=== PATIENT | female | born 1985 | race Caucasian/White ===

== ENCOUNTER 2019-08-26 08:45 | Outpatient (CLI) | payer SELFPAY ==
[2019-08-27 16:01] LABS: COVID-19 RT-PCR Result Not Detected ((See Note))
== END 2019-08-26 09:05 ==
PROVIDERS: Visit Provider Family Medicine
DX: Z11.59 Encounter for screening for other viral diseases (principal)
CPT/HCPCS: U0003

== ENCOUNTER 2019-11-15 07:50 | Emergency (ER) | payer BC, SELFPAY ==
[2019-11-15] VITALS (27 sets, daily range): BP systolic 122–153; BP diastolic 60–79; PULSE 115–142; RESP 14–32; TEMP 36.8–37.2; O2SAT 94–100
[2019-11-15] MEDS: Normal Saline 1,000 ML 1000 ML IV ×2 (08:03→09:19)
[2019-11-15 08:04] LABS: Bilirubin Negative (Negative); Blood Negative (Negative); Clarity Clear (Clear); Glucose Negative (Negative); Ketones 80 mg/dL (Negative); Leukocyte Esterase Negative (Negative); Nitrite Negative (Negative); Specific Gravity 1.025 (1.005-1.025); Urobilinogen 0.2 EU/dL (Up TO 0.2); pH 5.5 (5-8)
[2019-11-15] MEDS: Ondansetron 4 MG/2 ML VIAL IVP (08:13)
[2019-11-15] MEDS: Normal Saline Flush 10 ML SYR IVP ×2 (08:14→09:11)
--- NOTE | 2019-11-15 08:17 | W.ED.GENAD ---
Discharge Plan Disposition Patient Disposition: HOME Condition: Stable Discharge Details Chief Complaint: Nausea/Vomit/Diar Clinical Impression: Gastroenteritis, Hyperthyroidism Primary Care Provider: Starr Javier ED Provider: Sheba Spence Home Meds and New Rx's Prescriptions: New methimazole 10 mg tablet 20 mg PO DAILY 30 Days Qty: 60 RF: 0 atenolol 25 mg tablet 25 mg PO DAILY 30 Days Qty: 30 RF: 0 ondansetron 4 mg tablet,disintegrating 4 mg PO TID PRN (Reason: Nausea) 5 Days Qty: 20 RF: 0 Discharge Instructions Instructions: Hyperthyroidism (ED), Gastroenteritis (ED) Additional Instructions: Follow-up with [facility] endocrinology clinic on Saturday afternoon. They will call you to make an appointment. If you do not hear from them by tomorrow afternoon please call to make an appointment. I spoke with Dr. King. At this time your thyroid test appeared that you are in hyperthyroid. You also do have some gastroenteritis and thickening of your bowel wall which is indication of inflammation. Take nausea medications as directed. Do start taking the methimazole and atenolol daily as prescribed. If increased dizziness or heart rate less than 60 or blood pressure less than 90 stop taking the atenolol. Keep your primary care appointment as previously scheduled you are also placed on a list to get a sooner appointment. As always please return to the ER with any worsening or concerns. Follow up with primary care provider in 3-5 days. Return to ED sooner if any worsening or concerns. Increase oral fluids. Referrals: Starr Javier, [employer] [Primary Care Provider] - Discharge Data Discharge Date/Time-TO BE ENTERED AT DEPARTURE: 11/15/19 11:37 Medical Decision Making 34-year-old female presents to the ER with chronic history of nausea vomiting diarrhea. Over the last couple days nausea has been getting worse she presents via EMS with tachycardia, shakiness associated symptoms include night sweats or hot flashes patient describes it, stuffy nose, loose diarrhea at least 2-3 episodes daily, nausea. She denies any abdominal pain. She has been taking gastro-pharm which is a lactobacillus medication 3 times a day which she reports has been helping. She denies any drugs or alcohol. She reports decreased appetite due to the nausea. Relieving factors include laying down. At this time abdominal work-up ordered including CBC, CMP, lipase, urinalysis normal saline 1 L, Zofran given. At this time differential diagnosis includes but not limited to gastroenteritis, cholecystitis, gastric emptying syndrome,Thyroid storm,Food poisoning 0936: Patient is mildly hypomagnesemia 1.7, potassium is 3.4, carbon dioxide is 20.3, anion gap is 14.7 BUN and creatinine is 13 and 0.60, GFR is greater than 60. TSH is less than 0.01, Reflex free T4 added on. This could explain tachycardia. Will give oral magnesium and potassium here in department. PROCEDURE INFORMATION: Exam: CT Abdomen And Pelvis With Contrast Exam date and time: 11/15/2019 9:01 AM Age: 34 years old Clinical indication: Other: Chronic nausea, vomiting, diarrhea; Patient HX: Two years with nausea, worse in the last 2 months FINDINGS: Liver: Normal. No mass. Gallbladder and bile ducts: Normal. No calcified stones. No ductal dilation. Pancreas: Normal. No ductal dilation. Spleen: Normal. No splenomegaly. Adrenals: Normal. No mass. Kidneys and ureters: Normal. No hydronephrosis. Stomach and bowel: Diffuse proximal small bowel wall thickening without significant distention. No adjacent inflammatory changes. Non-specific enteritis, additional workup necessary. Distal small bowel normal in appearance. Terminal ileum unremarkable. Appendix: No evidence of appendicitis. Intraperitoneal space: Unremarkable. No free air. No significant fluid collection. Vasculature: Unremarkable. No abdominal aortic aneurysm. Lymph nodes: Unremarkable. No enlarged lymph nodes. Bladder: Unremarkable as visualized. Reproductive: Unremarkable as visualized. Bones/joints: Unremarkable. No acute fracture. Soft tissues: Unremarkable. IMPRESSION: Diffuse proximal small bowel wall thickening without significant distention. No adjacent inflammatory changes. Non-specific enteritis, additional workup necessary. Thank you for allowing us to participate in the care of your patient. Dictated and Authenticated by: Misa Gao MD 1056: Endocrinology paged for consult. At this time is concern for hyperthyroidism, no evidence for thyroid storm patient has remained afebrile, she states that she feels somewhat better after the fluids and nausea medications. After 2 L normal saline she is remained tachycardic at a rate of 130. 1049: Spoke with Marquis with endocrinology. Upon further questioning patient does report some sore throat upon awakening every day, Denies trouble swallowing. Upon further exam, patient does appear to have a enlarged thyroid, without a goiter. Director Smb Sales Dr. Farhana Flores recommends methimazole 20 mg/day and atenolol 25 mg twice daily to control heart rate they will reach out to her and make an appointment for Saturday afternoon she did recommend that I add on a TSI and a free T3 which was added to her labs. Will fax over her lab to [facility]. Patient stool specimens ordered for stool PCR, ova and parasite patient to collect at home to bring to lab at later date. Patient encouraged to keep upcoming PCP appointment,. HPI General Mode of arrival: EMS. Date/Time Provider Initiated Documentation: 11/15/19 08:02. Limitations to Documentation: no limitations. Information obtained by: patient and EMS. HPI Narrative: 34-year-old female presents to the ER with chronic history of nausea vomiting diarrhea. Over the last couple days nausea has been getting worse she presents via EMS with tachycardia, shakiness associated symptoms include night sweats or hot flashes patient describes it, stuffy nose, loose diarrhea at least 2-3 episodes daily, nausea. She denies any abdominal pain. She has been taking gastro-pharm which is a lactobacillus medication 3 times a day which she reports has been helping. She denies any drugs or alcohol. She reports decreased appetite due to the nausea. Relieving factors include laying down. Related Data Home Medications Medication Instructions Recorded Confirmed atenolol 25 mg PO DAILY 30 Days #30 tab 11/15/19 methimazole 20 mg PO DAILY 30 Days #60 tab 11/15/19 ondansetron 4 mg PO TID PRN 5 Days #20 tab 11/15/19 Previous Rx's Medication Instructions Recorded atenolol 25 mg PO DAILY 30 Days #30 tab 11/15/19 methimazole 20 mg PO DAILY 30 Days #60 tab 11/15/19 ondansetron 4 mg PO TID PRN 5 Days #20 tab 11/15/19 Allergies Allergy/AdvReac Type Severity Reaction Status Date / Time No Known Allergies Allergy Unverified 11/15/19 08:06 General Stated Complaint: Nausea/Vomit/Diar JILL: 3 Review of Systems Narrative: Constitutional: Negative for fever, alert and oriented, well groomed, thin body habitus, appears anxious. HEENT: Denies trauma, headaches, blurry vision, nasal discharge, sore throat, trouble swallowing. Chest: Denies chest pain, irregular rhythm, hypertension. Respiratory: Denies Shortness of breath, cough, hemoptysis. GI: Denies abdominal pain, , constipation. Of nausea, vomiting, diarrhea. Denies dark or bloody stools denies any mucus in stools. : Denies dysuria, hematuria, flank pain, rectal bleeding. Neuro: Denies dizziness, blurry vision, weakness, syncope, headache or facial numbness. Hematologic: Denies easy bruising, intolerance to heat or cold, hair loss. 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 Appears stated age. Thin body habitus. Appears anxious and shaky. Head: Normocephalic, no trauma. Eyes: Pupils PERRLA, Red reflex noted, EOM's intact. Eyelids symmetrical without lesions, discharge, or swelling. ENT: Bilateral TM's WNL, External ear normal to inspection, no mastoid TTP, swelling, or erythema, Nasal turbinates WNL, no nasal discharge. Normal dentition, Posterior pharynx WNL, no exudate. Chest: Tachycardic at a rate of 143, normal S1, S2, distal pulses intact. Resp: Lungs clear to auscultation bilaterally, no wheezes, rales, or rhonchi. Abdomen: Flat nondistended normoactive bowel sounds all 4 quadrants. Nontender to palpation. Musculoskeletal: Normal gait, 5/5 strength to all four extremities. Skin: No suspicious rashes or lesions. Capillary refill less than 2 sec. Neurologic: Cranial nerves II-XII intact. Alert and oriented x 3. DTR's intact. Hematologic/Lymphatic: No ecchymosis, no lymphadenopathy. Course Vital Signs Vital signs: Vital Signs Temperature 36.8 C 11/15/19 07:55 Pulse 138 H 11/15/19 07:55 Respiratory Rate 25 H 11/15/19 07:55 Blood Pressure 140/79 11/15/19 07:55 Pulse Oximetry 99 11/15/19 07:55 Temperature 36.8 C 11/15/19 07:55 Temperature Source Skin 11/15/19 07:55 Pulse 138 H 11/15/19 07:55 Respiratory Rate 25 H 11/15/19 07:55 Respiratory Effort Non-Labored 11/15/19 08:06 Blood Pressure 140/79 11/15/19 07:55 Blood Pressure Position Supine 11/15/19 07:55 Pulse Oximetry 99 11/15/19 07:55 Oxygen Delivery Method Room Air 11/15/19 07:55 Oxygen Flow Rate 0 11/15/19 07:55 Pain Level 0 11/15/19 07:55 Lab/Test Results Lab/Test Results: Laboratory Tests Range/Units 11/15/19 07:55 Urine Color (Yellow) Yellow Urine Clarity (Clear) Clear Urine pH (5-8) 5.5 Ur Specific [place] (1.005-1.025) 1.025 Urine Protein (Negative) mg/dL Negative Urine Ketones (Negative) mg/dL 80 H Urine Blood (Negative) Negative Urine Nitrite (Negative) Negative Urine Bilirubin (Negative) Negative Urine Urobilinogen (Up TO 0.2) EU/dL 0.2 Ur Leukocyte Esterase (Negative) Negative Urine Glucose (Negative) mg/dL Negative POC- Test(urine) Negative
[2019-11-15 08:26] LABS: Abs Immature Grans 0.01 k/cumm (0.0-0.09); Absolute Basophil Count 0.01 k/cumm (0.0-0.2); Absolute Eosinophil Count 0.01 k/cumm (0.0-0.7); Absolute Lymphocyte Count 1.53 k/cumm (1.2-3.4); Absolute Monocyte Count 0.47 k/cumm (0.11-0.7); Absolute Neutrophil Count 4.28 k/cumm (1.2-6.7); Basophils % 0.2; Eosinophils % 0.2; HCT 39.9 % (36.0-46.0); HGB 13.9 g/dL (12.0-15.5); Immature Grans % 0.2 %; Lymphocytes % 24.2; Mean Corp. HGB Concentration 34.8 g/dL (32.0-36.0); Mean Corpuscular Hemoglobin 29.4 pg (27.0-33.0); Mean Corpuscular Volume 84.4 fL (80-95); Mean Platelet Volume 10.4 fL (8.0-11.0); Monocytes % 7.4; Neutrophils % 67.8; Platelet Count 234 x1000/uL (130-400); RBC 4.73 m/cumm (4.00-5.20); RBC Distribution Width 11.7 % (11.7-14.6); White Blood Cell Count 6.31 k/cumm (4.4-10.8)
[2019-11-15 08:42] LABS: ALT 35 U/L (14-59); AST 24 U/L (15-37); Albumin 3.9 g/dL (3.4-5.0); Alkaline Phosphatase 63 U/L (46-116); Anion Gap 14.7 mmol/L (3-11); BUN 13 mg/dL (7-18); Bilirubin, Total 0.8 mg/dL (0.2-1.0); CO2 20.3 mmol/L (21.0-32.0); Calcium 8.7 mg/dL (8.5-10.1); Chloride 104 mmol/L (98-107); Glucose 86 mg/dL (74-106); Lipase 138 U/L (73-393); Magnesium 1.7 mg/dL (1.8-2.4); Potassium 3.4 mmol/L (3.5-5.1); Sodium 139 mmol/L (136-145); Total Protein 6.9 g/dL (6.4-8.2)
[2019-11-15 08:51] LABS: TSH < 0.01 uIU/mL (0.36-3.74)
[2019-11-15] MEDS: Omnipaque 350 MG/ML 100 ML BTL IJ (09:10)
[2019-11-15] MEDS: Normal Saline - Diluent 50 ML VIAL IV (09:11)
--- NOTE | 2019-11-15 09:11 | DI.CT_ITS ---
EXAM: CT ABDOMEN PELVIS W CLINICAL HISTORY: Chronic Nausea, vomiting, diarrhea. TECHNIQUE: Imaging Protocol: Axial computed tomography images with coronal and sagittal reformatted images were created and reviewed CONTRAST MATERIAL: Intravenous: Omnipaque 350 Contrast volume:66 ml Oral: no COMPARISON: No exams were available for comparison FINDINGS: ABDOMEN: Lung Bases: Normal where visualized. Liver: Normal density. No measurable mass. Gallbladder and biliary tract: No radiodense calculus or dilation. Pancreas: Normal density, no abnormal calcifications or inflammatory process. Spleen: Normal. Kidneys: Normal size, contour and axis. No radiodense stones or obstructive uropathy. No masses seen. Adrenal glands: No masses seen. Abdominal Aorta: Abdominal portion non-dilated. PELVIS: Bladder: Symmetric distention, no gross wall thickening. Bowel: The bowel is not well evaluated without oral contrast and lack of intra-abdominal fat. There is no abnormal bowel distension or gross evidence of wall thickening. The appendix appears normal. Peritoneal cavity: No ascites, collection or mesenteric inflammatory response. Bones: Within normal limits. Reproductive organs: Within normal limits. Lymph nodes: Unremarkable. Impression: Unremarkable CT scan of the abdomen and pelvis. RADIATION DOSE DELIVERED: Total DLP DATA REPOSITORY: All CT scans at this facility are submitted to the National Radiology Data Registry (NRDR) Dose Index Registry (DIR) with the [employer] (ACR). RADIATION OPTIMIZATION: All CT scans at this facility use at least one of these dose optimization te chniques: automated exposure control; mA and/or kV adjustment per patient size (includes targeted exa ms where dose is matched to clinical indication); or iterative reconstruction.
[2019-11-15] MEDS: Potassium Chloride Liquid 20 MEQ PKT PO (09:19)
[2019-11-15] MEDS: Magnesium Chloride 64 MG TABCR PO (09:19)
--- NOTE | 2019-11-15 09:44 | DI.VRAD_ITS ---
PROCEDURE INFORMATION: Exam: CT Abdomen And Pelvis With Contrast Exam date and time: 11/15/2019 9:01 AM Age: 34 years old Clinical indication: Other: Chronic nausea, vomiting, diarrhea; Patient HX: Two years with nausea, worse in the last 2 months TECHNIQUE: Imaging protocol: Computed tomography of the abdomen and pelvis with intravenous contrast. Radiation optimization: All CT scans at this facility use at least one of these dose optimization techniques: automated exposure control; mA and/or kV adjustment per patient size (includes targeted exams where dose is matched to clinical indication); or iterative reconstruction. Contrast material: OMNIPAQUE 350; Contrast volume: 66 ml; Contrast route: INTRAVENOUS (IV); COMPARISON: No relevant prior studies available. FINDINGS: Liver: Normal. No mass. Gallbladder and bile ducts: Normal. No calcified stones. No ductal dilation. Pancreas: Normal. No ductal dilation. Spleen: Normal. No splenomegaly. Adrenals: Normal. No mass. Kidneys and ureters: Normal. No hydronephrosis. Stomach and bowel: Diffuse proximal small bowel wall thickening without significant distention. No adjacent inflammatory changes. Non-specific enteritis, additional workup necessary. Distal small bowel normal in appearance. Terminal ileum unremarkable. Appendix: No evidence of appendicitis. Intraperitoneal space: Unremarkable. No free air. No significant fluid collection. Vasculature: Unremarkable. No abdominal aortic aneurysm. Lymph nodes: Unremarkable. No enlarged lymph nodes. Bladder: Unremarkable as visualized. Reproductive: Unremarkable as visualized. Bones/joints: Unremarkable. No acute fracture. Soft tissues: Unremarkable. IMPRESSION: Diffuse proximal small bowel wall thickening without significant distention. No adjacent inflammatory changes. Non-specific enteritis, additional workup necessary. Dictated and Authenticated by: Misa Gao MD. Ordering:SETH Scruggs MD
--- NOTE | 2019-11-15 10:25 | NUR.NOTE ---
Referral faxed to [facility], Starr Javier.Nursing Note:
[2019-11-15] MEDS: Lactated Ringers 1,000 ML 200 ML IV (10:38)
[2019-11-16 16:52] LABS: T3, Total 390 ng/dL (97-169)
[2019-11-18 14:48] LABS: Thyroid Stimulating Immunoglob 4.6 TSI index (<=1.3)
== END 2019-11-15 11:37 | disposition home or self-care (01) ==
PROVIDERS: Emergency Provider Registered Nurse Emergency; PCP Nurse Practitioner Adult Health
DX: K52.9 Noninfective gastroenteritis and colitis, unspecified (principal); E05.90 Thyrotoxicosis, unspecified without thyrotoxic crisis or storm; E87.6 Hypokalemia; E83.42 Hypomagnesemia
CPT/HCPCS: 36415; 80053; 81025; 83690; 96361; 96374; 99285; 74177; 81003; 83735; 84439; 84443; 84445; 84480; 85025; 99284; J2405; J3490

== ENCOUNTER 2019-11-17 17:23 | Outpatient (REF) | payer BC, SELFPAY ==
[2019-11-19 10:55] LABS: Campylobacter PCR Negative (Negative); Salmonella PCR Negative (Negative); Shiga Toxin PCR Negative (Negative); Shigella/Enteroinvasive Ecoli Negative (Negative)
== END 2019-11-17 17:43 ==
LOC: LBN 17:23
PROVIDERS: PCP Nurse Practitioner Adult Health; Visit Provider Nurse Practitioner Adult Health
DX: K52.9 Noninfective gastroenteritis and colitis, unspecified (principal)
CPT/HCPCS: 87329; 87505; 87177

== ENCOUNTER 2019-12-02 02:38 | Outpatient (CLI) | payer BC, SELFPAY ==
[2019-12-02 17:56] LABS: FREE T4 0.99 ng/dL (0.76-1.46)
[2019-12-03 05:20] LABS: Vitamin D 25 Total 42.8 ng/ml (30-100)
[2019-12-04 11:10] LABS: Thyroperoxidase Antibody 610 U/mL (<=60)
[2019-12-09 18:30] LABS: Thyroid Stimulating Immunoglob 3.7 TSI index (<=1.3)
== END 2019-12-02 02:58 ==
PROVIDERS: PCP Nurse Practitioner Adult Health; Visit Provider Internal Medicine Endocrinology, Diabetes & Metabolism
DX: E05.90 Thyrotoxicosis, unspecified without thyrotoxic crisis or storm (principal)
CPT/HCPCS: 36415; 82306; 84439; 84445; 86376

== ENCOUNTER 2020-01-06 04:14 | Outpatient (CLI) | payer BC, SELFPAY ==
[2020-01-06 17:58] LABS: FREE T4 3.51 ng/dL (0.76-1.46)
[2020-01-06 18:10] LABS: TSH < 0.01 uIU/mL (0.36-3.74)
== END 2020-01-06 04:34 ==
PROVIDERS: PCP Nurse Practitioner Adult Health; Visit Provider Internal Medicine Endocrinology, Diabetes & Metabolism
DX: E05.00 Thyrotoxicosis with diffuse goiter without thyrotoxic crisis or storm (principal)
CPT/HCPCS: 36415; 84439; 84443

== ENCOUNTER 2020-03-01 01:58 | Outpatient (CLI) | payer BC, SELFPAY ==
[2020-03-01 18:11] LABS: FREE T4 0.51 ng/dL (0.76-1.46); TSH 2.14 uIU/mL (0.36-3.74)
== END 2020-03-01 02:18 ==
PROVIDERS: Internal Medicine; PCP Nurse Practitioner Adult Health; Visit Provider Internal Medicine Endocrinology, Diabetes & Metabolism
DX: E05.00 Thyrotoxicosis with diffuse goiter without thyrotoxic crisis or storm (principal)
CPT/HCPCS: 36415; 84439; 84443

== ENCOUNTER 2020-06-01 03:03 | Outpatient (CLI) | payer BC, SELFPAY ==
[2020-06-01 18:20] LABS: FREE T4 1.08 ng/dL (0.76-1.46); TSH 3.52 uIU/mL (0.36-3.74)
[2020-06-02 17:15] LABS: T3, Total 140 ng/dL (97-169)
== END 2020-06-01 03:04 | disposition home or self-care (01) ==
LOC: LBO 03:03
PROVIDERS: PCP Nurse Practitioner Adult Health; Visit Provider Internal Medicine Endocrinology, Diabetes & Metabolism
DX: E05.00 Thyrotoxicosis with diffuse goiter without thyrotoxic crisis or storm (principal)
CPT/HCPCS: 36415; 84439; 84443; 84480

== ENCOUNTER 2020-12-14 02:41 | Outpatient (CLI) | payer BC, SELFPAY ==
[2020-12-14 18:04] LABS: Iron 70 ug/dL (50-170); Total Iron Binding Capacity 304 ug/dL (250-450); Transferrin Sat 23 % (15-50)
[2020-12-14 18:38] LABS: Anion Gap 9.7 mmol/L (3-11); BUN 12 mg/dL (7-18); CO2 28.3 mmol/L (21.0-32.0); CREATININE 0.8 mg/dL (0.55-1.02); Calcium 9.3 mg/dL (8.5-10.1); Chloride 103 mmol/L (98-107); Glucose 96 mg/dL (74-106); Potassium 3.7 mmol/L (3.5-5.1); Sodium 141 mmol/L (136-145); TSH 3.44 uIU/mL (0.36-3.74); Vitamin B12 397 pg/mL (193-986)
[2020-12-14 19:04] LABS: FREE T4 1.09 ng/dL (0.76-1.46)
[2020-12-15 00:41] LABS: Vitamin D 25 Total 31.3 ng/mL (30-100)
[2020-12-15 17:20] LABS: T3, Total 129 ng/dL (97-169)
[2020-12-16 14:52] LABS: Adrenocorticotropic Hormone, P 10 pg/mL
[2020-12-23 14:11] LABS: Thyroid Stimulating Immunoglob 1.1 TSI index (<=1.3)
== END 2020-12-14 02:42 | disposition home or self-care (01) ==
LOC: LBO 02:41
PROVIDERS: PCP Nurse Practitioner Adult Health; Visit Provider Internal Medicine Endocrinology, Diabetes & Metabolism
DX: E05.00 Thyrotoxicosis with diffuse goiter without thyrotoxic crisis or storm (principal); R11.0 Nausea; R42 Dizziness and giddiness; R53.83 Other fatigue; E55.9 Vitamin D deficiency, unspecified; N92.0 Excessive and frequent menstruation with regular cycle
CPT/HCPCS: 36415; 80048; 82306; 82533; 82024; 82607; 83540; 83550; 84439; 84443; 84445; 84480

== ENCOUNTER 2021-02-02 02:44 | Outpatient (CLI) | payer BC, SELFPAY | END 2021-02-02 02:45 | disposition home or self-care (01) | PROVIDERS: PCP Nurse Practitioner Adult Health; Visit Provider Internal Medicine Endocrinology, Diabetes & Metabolism | DX: E05.00 Thyrotoxicosis with diffuse goiter without thyrotoxic crisis or storm (principal) | CPT/HCPCS: 36415; 80048; 82306; 82533; 82024; 82607; 83540; 83550; 84439; 84443; 84445; 84481 ==

== ENCOUNTER 2021-05-10 03:04 | Outpatient (CLI) | payer BC, SELFPAY ==
[2021-05-10 11:04] LABS: TSH 0.29 uIU/mL (0.36-3.74); Vitamin B12 752 pg/mL (193-986)
== END 2021-05-10 03:05 | disposition home or self-care (01) ==
LOC: LBO 03:05
PROVIDERS: PCP Nurse Practitioner Adult Health; Visit Provider Internal Medicine Endocrinology, Diabetes & Metabolism
DX: E05.00 Thyrotoxicosis with diffuse goiter without thyrotoxic crisis or storm (principal); R53.83 Other fatigue; E55.9 Vitamin D deficiency, unspecified; R42 Dizziness and giddiness
CPT/HCPCS: 36415; 82306; 82607; 84443

== ENCOUNTER 2021-07-20 04:13 | Outpatient (CLI) | payer BC, SELFPAY ==
[2021-07-20 14:08] LABS: Vitamin D 25 Total 46.1 ng/mL (30-100)
[2021-07-20 14:45] LABS: TSH 0.23 uIU/mL (0.36-3.74); Vitamin B12 937 pg/mL (193-986)
== END 2021-07-20 04:14 | disposition home or self-care (01) ==
LOC: LBO 04:13
PROVIDERS: PCP Nurse Practitioner Adult Health; Visit Provider Internal Medicine Endocrinology, Diabetes & Metabolism
DX: E55.9 Vitamin D deficiency, unspecified (principal); E05.00 Thyrotoxicosis with diffuse goiter without thyrotoxic crisis or storm; R53.83 Other fatigue; R42 Dizziness and giddiness
CPT/HCPCS: 36415; 82306; 82607; 84443

== ENCOUNTER 2021-07-24 13:51 | Outpatient (REF) | payer BC, SELFPAY ==
--- NOTE | 2021-07-24 13:30 | PAPFT_PTH ---
PATIENT: Elian Dash LOC: [facility]#:[id number] AGE/SX: 36/F ROOM: RE07/24/[address]: Starr Javier APRN : 1985 BED: DIS: 07/24/2021 SPEC #: [id number] RECD: 07/24/21 17:35 STATUS: MARY RETamiko #: [id number] PRAKASH: 07/24/21 13:[address]: Starr Javier DEPT: [facility] Cytology RECD BY: Courtney Iglesias Tissues: 1 - CX/ENDOCX FOR PAP SMEARS Procedures: PAP THIN PREP/UVM Screening HPV DNA PROBE Comments: [id number]
== END 2021-07-24 13:52 | disposition home or self-care (01) ==
LOC: LBN 13:51
PROVIDERS: PCP Nurse Practitioner Adult Health; Visit Provider Nurse Practitioner Adult Health
DX: R87.610 Atypical squamous cells of undetermined significance on cytologic smear of cervix (ASC-US) (principal); Z12.4 Encounter for screening for malignant neoplasm of cervix; Z11.51 Encounter for screening for human papillomavirus (HPV)
CPT/HCPCS: 88142; 87624

== ENCOUNTER 2021-11-28 03:33 | Outpatient (CLI) | payer BC, SELFPAY ==
[2021-11-28 15:06] LABS: TSH 0.64 uIU/mL (0.36-3.74); Vitamin B12 604 pg/mL (193-986)
[2021-11-30 04:48] LABS: Vitamin D 25 Total 54.4 ng/mL (30-100)
== END 2021-11-28 03:34 | disposition home or self-care (01) ==
LOC: LBO 03:33
PROVIDERS: PCP Nurse Practitioner Adult Health; Visit Provider Internal Medicine Endocrinology, Diabetes & Metabolism
DX: E05.00 Thyrotoxicosis with diffuse goiter without thyrotoxic crisis or storm (principal); E55.9 Vitamin D deficiency, unspecified; R53.83 Other fatigue; R42 Dizziness and giddiness
CPT/HCPCS: 36415; 82306; 82607; 84443

== ENCOUNTER 2022-02-08 04:01 | Outpatient (CLI) | payer BC, SELFPAY | END 2022-02-08 04:02 | disposition home or self-care (01) | LOC: LBO 04:01 | PROVIDERS: PCP Nurse Practitioner Adult Health; Visit Provider Internal Medicine Endocrinology, Diabetes & Metabolism | DX: E05.00 Thyrotoxicosis with diffuse goiter without thyrotoxic crisis or storm (principal) | CPT/HCPCS: 36415; 84443 ==

== ENCOUNTER 2022-05-08 03:04 | Outpatient (CLI) | payer BC, SELFPAY ==
[2022-05-08 10:44] LABS: Absolute Basophil Count 0.04 10^3/uL (0.0-0.2); Absolute Eosinophil Count 0.03 10^3/uL (0.0-0.7); Absolute Lymphocyte Count 1.91 10^3/uL (1.2-3.4); Absolute Monocyte Count 0.39 10^3/uL (0.1-0.8); Absolute Neutrophil Count 2.91 10^3/uL (1.2-6.7); Basophils % 0.8; Eosinophils % 0.6; HCT 43.8 % (36.0-46.0); HGB 15.2 g/dL (11.2-15.7); Lymphocytes % 36.2; MCH 31.4 pg (27.0-33.0); MCHC 34.7 % (32.0-36.0); MCV 91 fL (80-95); MPV 9.3 fL (8.0-11.0); Monocytes % 7.4; Platelet Count 225 10^3/uL (130-400); RBC 4.84 10^6/uL (3.93-5.22); RDW 11.8 % (11.7-14.6); RDW-SD 39.3 fL; WBC 5.28 10^3/uL (4.4-10.8)
[2022-05-08 11:07] LABS: ALT 18 U/L (14-59); AST 17 U/L (15-37); Albumin 4.6 g/dL (3.4-5.0); Alkaline Phosphatase 48 U/L (46-116); Anion Gap 7.9 mmol/L (3-11); BUN 11 mg/dL (7-18); Bilirubin, Total 0.7 mg/dL (0.2-1.0); CO2 29.1 mmol/L (21.0-32.0); CREATININE 0.9 mg/dL (0.55-1.02); Calcium 9.4 mg/dL (8.5-10.1); Chloride 103 mmol/L (98-107); Estimated GFR 84.97 (mL/min/1.73m2); Glucose 119 mg/dL (74-106); Potassium 3.3 mmol/L (3.5-5.1); Sodium 140 mmol/L (136-145); Total Protein 7.9 g/dL (6.4-8.2)
[2022-05-08 11:16] LABS: TSH 0.43 uIU/mL (0.36-3.74)
[2022-05-08 12:42] LABS: Vitamin D 25 Total 65.6 ng/mL (30-100)
== END 2022-05-08 03:05 | disposition home or self-care (01) ==
LOC: LBO 03:05
PROVIDERS: PCP Nurse Practitioner Adult Health; Visit Provider Internal Medicine Endocrinology, Diabetes & Metabolism
DX: R10.2 Pelvic and perineal pain (principal); E05.00 Thyrotoxicosis with diffuse goiter without thyrotoxic crisis or storm; E55.9 Vitamin D deficiency, unspecified; R61 Generalized hyperhidrosis
CPT/HCPCS: 36415; 80053; 82306; 84443; 85025

== ENCOUNTER 2022-05-24 14:55 | Outpatient (REF) | payer BC, SELFPAY ==
--- NOTE | 2022-05-24 14:15 | PAPFT_PTH ---
PATIENT: Elian Dash LOC: [facility] U#:[id number] AGE/SX: 37/F ROOM: RE05/24/[address]: Starr Javier APRN : 1985 BED: DIS: 05/24/2022 SPEC #: [id number] RECD: 05/24/22 18:22 STATUS: MARY REQ #: [id number] PRAKASH: 05/24/22 14:[address]: Starr Javier DEPT: [facility] Cytology RECD BY: Courtney Iglesias Tissues: 1 - CX/ENDOCX FOR PAP SMEARS Procedures: PAP THIN PREP/UVM Screening HPV DNA PROBE Comments: [id number]
== END 2022-05-24 14:56 | disposition home or self-care (01) ==
LOC: LBN 14:55
PROVIDERS: PCP Nurse Practitioner Adult Health; Visit Provider Nurse Practitioner Adult Health
DX: Z12.4 Encounter for screening for malignant neoplasm of cervix (principal); Z11.51 Encounter for screening for human papillomavirus (HPV); R87.610 Atypical squamous cells of undetermined significance on cytologic smear of cervix (ASC-US); R87.810 Cervical high risk human papillomavirus (HPV) DNA test positive
CPT/HCPCS: 88142; 87624

== ENCOUNTER 2022-07-06 01:46 | Outpatient (CLI) | payer BC, SELFPAY ==
[2022-07-08 17:08] LABS: Estradiol 19 pg/mL (See Note)
[2022-07-09 11:17] LABS: FSH 17.8 mIU/mL (See Note)
[2022-07-09 21:07] LABS: Antimullerian Hormone 0.27 ng/mL (0.15-7.5)
== END 2022-07-06 01:47 | disposition home or self-care (01) ==
LOC: LBO 01:47
PROVIDERS: PCP Nurse Practitioner Adult Health; Visit Provider Obstetrics & Gynecology
DX: N97.8 Female infertility of other origin (principal); N92.5 Other specified irregular menstruation; R61 Generalized hyperhidrosis
CPT/HCPCS: 36415; 82670; 83001; 83520

== ENCOUNTER 2022-08-09 03:38 | Outpatient (CLI) | payer BC, SELFPAY ==
[2022-08-09 09:26] LABS: TSH < 0.01 uIU/mL (0.36-3.74)
== END 2022-08-09 03:39 | disposition home or self-care (01) ==
LOC: LBO 03:38
PROVIDERS: PCP Nurse Practitioner Adult Health; Visit Provider Internal Medicine Endocrinology, Diabetes & Metabolism
DX: E05.00 Thyrotoxicosis with diffuse goiter without thyrotoxic crisis or storm (principal); E55.9 Vitamin D deficiency, unspecified
CPT/HCPCS: 36415; 84443

== ENCOUNTER 2022-11-08 02:29 | Outpatient (CLI) | payer BC, SELFPAY ==
[2022-11-08 18:23] LABS: Vitamin B12 527 pg/mL (193-986)
[2022-11-08 18:39] LABS: FREE T4 2.25 ng/dL (0.76-1.46)
[2022-11-08 18:40] LABS: TSH < 0.01 uIU/mL (0.36-3.74)
[2022-11-08 18:51] LABS: Vitamin D 25 Total 58.6 ng/mL (30-100)
[2022-11-09 21:09] LABS: T3, Total 331 ng/dL (97-169)
[2022-11-13 16:41] LABS: Thyroid Stimulating Immunoglob 4.1 TSI index (<=1.3)
== END 2022-11-08 02:30 | disposition home or self-care (01) ==
LOC: LBO 02:29
PROVIDERS: PCP Nurse Practitioner Adult Health; Visit Provider Internal Medicine Endocrinology, Diabetes & Metabolism
DX: E05.00 Thyrotoxicosis with diffuse goiter without thyrotoxic crisis or storm (principal); E55.9 Vitamin D deficiency, unspecified; R53.83 Other fatigue
CPT/HCPCS: 36415; 82306; 82607; 84439; 84443; 84445; 84480

== ENCOUNTER 2023-01-31 01:22 | Outpatient (CLI) | payer BC, SELFPAY ==
[2023-01-31 18:13] LABS: FREE T4 2.14 ng/dL (0.76-1.46)
[2023-01-31 18:52] LABS: TSH < 0.01 uIU/mL (0.36-3.74)
[2023-02-01 18:40] LABS: T3, Total 296 ng/dL (97-169)
== END 2023-01-31 01:23 | disposition home or self-care (01) ==
PROVIDERS: PCP Nurse Practitioner Adult Health; Visit Provider Internal Medicine Endocrinology, Diabetes & Metabolism
DX: E05.00 Thyrotoxicosis with diffuse goiter without thyrotoxic crisis or storm (principal)
CPT/HCPCS: 36415; 84439; 84443; 84480

== ENCOUNTER 2023-03-06 02:13 | Outpatient (CLI) | payer BC, SELFPAY ==
[2023-03-06 18:07] LABS: FREE T4 1.11 ng/dL (0.76-1.46)
[2023-03-06 18:20] LABS: Vitamin D 25 Total 66.4 ng/mL (30-100)
[2023-03-06 18:23] LABS: Vitamin B12 686 pg/mL (193-986)
[2023-03-06 18:48] LABS: TSH < 0.01 uIU/mL (0.36-3.74)
[2023-03-07 19:31] LABS: T3, Total 165 ng/dL (97-169)
[2023-03-11 18:30] LABS: Thyroid Stimulating Immunoglob 3.4 TSI index (<=1.3)
== END 2023-03-06 02:14 | disposition home or self-care (01) ==
PROVIDERS: PCP Nurse Practitioner Adult Health; Visit Provider Internal Medicine Endocrinology, Diabetes & Metabolism
DX: E05.00 Thyrotoxicosis with diffuse goiter without thyrotoxic crisis or storm (principal); E55.9 Vitamin D deficiency, unspecified
CPT/HCPCS: 36415; 82306; 82607; 84439; 84443; 84445; 84480

== ENCOUNTER 2023-04-25 03:31 | Outpatient (CLI) | payer BC, SELFPAY ==
[2023-04-25 17:40] LABS: FREE T4 0.95 ng/dL (0.76-1.46); TSH 1.48 uIU/mL (0.36-3.74)
[2023-04-26 18:43] LABS: T3, Total 142 ng/dL (97-169)
[2023-04-29 14:26] LABS: D Farinae IgE 0.14 kU/L (<0.70)
== END 2023-04-25 03:32 | disposition home or self-care (01) ==
PROVIDERS: PCP Nurse Practitioner Adult Health; Visit Provider Internal Medicine Endocrinology, Diabetes & Metabolism
DX: E05.00 Thyrotoxicosis with diffuse goiter without thyrotoxic crisis or storm (principal); E55.9 Vitamin D deficiency, unspecified
CPT/HCPCS: 84439; 84443; 84480; 86003

== ENCOUNTER 2023-06-11 05:02 | Outpatient (CLI) | payer BC, SELFPAY ==
[2023-06-20 12:05] LABS: TSH 1.66 uIU/mL (0.36-3.74)
[2023-06-20 12:06] LABS: T3, Total 138 ng/dL (97-169)
== END 2023-06-11 05:03 | disposition home or self-care (01) ==
LOC: LBO 05:02
PROVIDERS: PCP Nurse Practitioner Adult Health; Visit Provider Internal Medicine Endocrinology, Diabetes & Metabolism
DX: E05.00 Thyrotoxicosis with diffuse goiter without thyrotoxic crisis or storm (principal); E55.9 Vitamin D deficiency, unspecified
CPT/HCPCS: 36415; 84439; 84443; 84480

== ENCOUNTER 2023-09-12 05:13 | Outpatient (CLI) | payer BC, SELFPAY ==
[2023-09-12 17:36] LABS: FREE T4 0.96 ng/dL (0.76-1.46); TSH 0.97 uIU/Ml (0.36-3.74)
[2023-09-13 18:55] LABS: T3, Total 124 ng/dL (97-169)
== END 2023-09-12 05:14 | disposition home or self-care (01) ==
PROVIDERS: PCP Nurse Practitioner Adult Health; Visit Provider Internal Medicine Endocrinology, Diabetes & Metabolism
DX: E05.00 Thyrotoxicosis with diffuse goiter without thyrotoxic crisis or storm (principal); E55.9 Vitamin D deficiency, unspecified; E28.39 Other primary ovarian failure; N92.6 Irregular menstruation, unspecified
CPT/HCPCS: 36415; 82670; 83001; 84146; 84439; 84443; 84480

== ENCOUNTER 2023-11-21 04:32 | Outpatient (CLI) | payer BC, SELFPAY ==
[2023-11-22 18:21] LABS: Estradiol 112 pg/mL (See Note)
[2023-11-22 18:34] LABS: FSH 7.3 mIU/mL (See Note)
== END 2023-11-21 04:33 | disposition home or self-care (01) ==
LOC: LBO 04:33
PROVIDERS: Obstetrics & Gynecology; PCP Nurse Practitioner Adult Health; Visit Provider Nurse Practitioner Adult Health
DX: E28.39 Other primary ovarian failure (principal); N92.6 Irregular menstruation, unspecified
CPT/HCPCS: 36415; 82670; 83001; 84146

== ENCOUNTER 2023-12-06 15:37 | Outpatient (REF) | payer BC, SELFPAY ==
--- NOTE | 2023-12-06 15:34 | PAPFT_PTH ---
PATIENT: Elian Dash LOC: [facility] U#:[id number] AGE/SX: 38/F ROOM: RE12/06/[address]: Patti Perdomo MD : 1985 BED: DIS: 12/06/2023 SPEC #: [id number] RECD: 12/06/23 16:54 STATUS: MARY REQ #: [id number] PRAKASH: 12/06/23 15:[address]: Patti Perdomo DEPT: [facility] Cytology RECD BY: Courtney Iglesias ENTERED: 12/06/23 16:55 SP TYPE: PAPFT OTHR DR: Starr Javier APRN Tissues: 1 - CX/ENDOCX FOR PAP SMEARS Procedures: PAP THIN PREP/UVM Screening HPV DNA PROBE Comments: [id number] (HPV 16 & 18/45)
== END 2023-12-06 15:38 | disposition home or self-care (01) ==
LOC: LBN 15:37
PROVIDERS: PCP Nurse Practitioner Adult Health; Visit Provider Obstetrics & Gynecology
DX: Z12.4 Encounter for screening for malignant neoplasm of cervix (principal)
CPT/HCPCS: 88142; 87624

== ENCOUNTER 2023-12-27 01:12 | Outpatient (CLI) | payer BC, SELFPAY ==
[2023-12-27 17:32] LABS: TSH 1.69 uIU/Ml (0.36-3.74); Vitamin D 25 Total 67.5 ng/mL (30-100)
[2023-12-27 17:54] LABS: FREE T4 0.99 ng/dL (0.76-1.46)
[2023-12-28 21:25] LABS: T3, Total 134 ng/dL (97-169)
== END 2023-12-27 01:13 | disposition home or self-care (01) ==
PROVIDERS: PCP Nurse Practitioner Adult Health; Visit Provider Internal Medicine Endocrinology, Diabetes & Metabolism
DX: E05.00 Thyrotoxicosis with diffuse goiter without thyrotoxic crisis or storm (principal); E55.9 Vitamin D deficiency, unspecified
CPT/HCPCS: 36415; 82306; 84439; 84443; 84480

== ENCOUNTER 2024-02-13 03:46 | Outpatient (CLI) | payer BC, SELFPAY ==
[2024-02-13 17:35] LABS: FREE T4 1.04 ng/dL (0.76-1.46); TSH 1.26 uIU/mL (0.36-3.74)
[2024-02-13 18:35] LABS: Vitamin D 25 Total 54.7 ng/mL (30-100)
[2024-02-14 17:32] LABS: T3, Total 151 ng/dL (97-169)
== END 2024-02-13 03:47 | disposition home or self-care (01) ==
PROVIDERS: PCP Nurse Practitioner Adult Health; Visit Provider Internal Medicine Endocrinology, Diabetes & Metabolism
DX: E05.00 Thyrotoxicosis with diffuse goiter without thyrotoxic crisis or storm (principal); E55.9 Vitamin D deficiency, unspecified
CPT/HCPCS: 36415; 82306; 84439; 84443; 84480

== ENCOUNTER 2024-05-04 14:09 | Outpatient (REF) | payer BC, SELFPAY ==
--- NOTE | 2024-05-04 13:15 | ENDO_PTH ---
PATIENT: Elian Dash LOC: [facility] U#:[id number] AGE/SX: 38/F ROOM: RE05/04/[address]: Patti Perdomo MD : 1985 BED: DIS: 05/04/2024 SPEC #: [id number] RECD: 05/04/24 17:03 STATUS: MARY REQ #: [id number] PRAKASH: 05/04/24 13:[address]: Patti Perdomo DEPT: Surgical Specimen RECD BY: Courtney Iglesias ENTERED: 05/04/24 17:03 SP TYPE: Endo OTHR DR: Strar Javier APRN Tissues: 1 - ENDOCERVICAL BX/CURRETTE Procedures: GROSS AND MICRO LEVEL 4 Comments: [id number]
== END 2024-05-04 14:10 | disposition home or self-care (01) ==
LOC: LBN 14:09
PROVIDERS: PCP Nurse Practitioner Adult Health; Visit Provider Obstetrics & Gynecology
DX: D26.0 Other benign neoplasm of cervix uteri (principal)
CPT/HCPCS: 88305

== ENCOUNTER 2024-05-11 03:16 | Outpatient (CLI) | payer BC, SELFPAY ==
[2024-05-11 16:52] LABS: ALT 21 U/L (14-59); AST 15 U/L (15-37); Albumin 3.6 g/dL (3.4-5.0); Alkaline Phosphatase 46 U/L (46-116); Anion Gap 6.9 mmol/L (3-11); BUN 20 mg/dL (7-18); Bilirubin, Total 0.37 mg/dL (0.2-1.0); CO2 28.1 mmol/L (21.0-32.0); CREATININE 1.3 mg/dL (0.55-1.02); Calcium 8.5 mg/dL (8.5-10.1); Chloride 105 mmol/L (98-107); Estimated GFR 53.98 (mL/min/1.73m2); Glucose 83 mg/dL (74-106); Potassium 3.8 mmol/L (3.5-5.1); Sodium 140 mmol/L (136-145)
[2024-05-11 17:02] LABS: FREE T4 0.86 ng/dL (0.76-1.46); TSH 2.07 uIU/mL (0.36-3.74)
[2024-05-12 18:38] LABS: T3, Total 112 ng/dL (97-169)
== END 2024-05-11 03:17 | disposition home or self-care (01) ==
PROVIDERS: Obstetrics & Gynecology; PCP Nurse Practitioner Adult Health; Visit Provider Internal Medicine Endocrinology, Diabetes & Metabolism
DX: R23.2 Flushing (principal); E05.00 Thyrotoxicosis with diffuse goiter without thyrotoxic crisis or storm; E55.9 Vitamin D deficiency, unspecified
CPT/HCPCS: 36415; 80053; 84439; 84443; 84480

== ENCOUNTER 2024-06-17 03:27 | Outpatient (CLI) | payer BC, SELFPAY ==
[2024-06-17 13:13] LABS: Anion Gap 6.6 mmol/L (3-11); BUN 11 mg/dL (7-18); CO2 29.4 mmol/L (21.0-32.0); CREATININE 0.8 mg/dL (0.55-1.02); Chloride 105 mmol/L (98-107); Estimated GFR 96.66 (mL/min/1.73m2); Glucose 102 mg/dL (74-106); Potassium 3.4 mmol/L (3.5-5.1); Sodium 141 mmol/L (136-145)
== END 2024-06-17 03:28 | disposition home or self-care (01) ==
LOC: LBO 03:27
PROVIDERS: PCP Nurse Practitioner Adult Health; Visit Provider Internal Medicine Endocrinology, Diabetes & Metabolism
DX: R79.89 Other specified abnormal findings of blood chemistry (principal)
CPT/HCPCS: 36415; 80048

== ENCOUNTER 2024-07-28 02:34 | Outpatient (CLI) | payer BC, SELFPAY ==
[2024-07-28 16:38] LABS: FREE T4 0.96 ng/dL (0.76-1.46); TSH 2.61 uIU/mL (0.36-3.74)
[2024-07-28 23:29] LABS: T3, Total 128 ng/dL (97-169)
== END 2024-07-28 02:35 | disposition home or self-care (01) ==
PROVIDERS: PCP Nurse Practitioner Adult Health; Visit Provider Internal Medicine Endocrinology, Diabetes & Metabolism
DX: E05.00 Thyrotoxicosis with diffuse goiter without thyrotoxic crisis or storm (principal); E55.9 Vitamin D deficiency, unspecified
CPT/HCPCS: 36415; 84439; 84443; 84480

== ENCOUNTER 2024-08-26 00:25 | Outpatient (CLI) | payer BC, SELFPAY ==
--- NOTE | 2024-08-26 06:15 | DI.MAMMO_ITS ---
Exam(s) MAMMO SCREENING EXAM: MAMMO SCREENING CLINICAL HISTORY: screening,z12.39,family h/o breast ca,z80.3. TECHNIQUE: Bilateral full field digital CC and MLO mammographic images were obtained with 3D tomosyn thesis and utilizing computer aided detection (CAD). COMPARISON: None. Baseline examination. FINDINGS: Masses: None seen. Architectural Distortion: None seen. Microcalcifications: No suspicious pleomorphic-type are seen. Skin Thickening/Nipple Retraction: None. IMPRESSION: 1. No significant interval change with no specific features of malignancy noted. 2. Unless there is more urgent need, annual screening mammography is recommended, as per [place] [employer] guidelines. BI-RADS Category 1-negative Breast Density - Category D - extremely dense Breast density Category C or D implies that the patient has dense breast tissue. Dense breast tissue can make it harder to find cancer on a mammogram. Dense breast tissue is also associated with an incr eased risk of breast cancer. This information about the result of the mammogram report was provided to the patient to raise their awareness. Use this report when you speak with the patient about their risks for breast cancer, which includes their family history. At that time, you may recommend additional screening tests (Ultrasoun d or MRI) as these tests may add significant information. A negative radiographic report should not delay biopsy if a dominant or clinically suspicious mass is present. Up to ten percent of cancers are not identified on mammography. A negative report may reinforce clinical impression. Adenosis and dense breasts may obscure an underlying neoplasm. False positive reports average 6 to 10%. Patient will receive a letter notifying them of these results.
== END 2024-08-26 00:45 ==
LOC: DI 00:25
PROVIDERS: PCP Nurse Practitioner Adult Health; Visit Provider Nurse Practitioner Adult Health
DX: Z12.39 Encounter for other screening for malignant neoplasm of breast (principal); Z80.3 Family history of malignant neoplasm of breast; R92.343 Mammographic extreme density, bilateral breasts
CPT/HCPCS: 77063; 77067

== ENCOUNTER 2025-01-14 04:19 | Outpatient (CLI) | payer BC, SELFPAY ==
[2025-01-15 15:27] LABS: TSH 2.76 uIU/mL (0.36-3.74); Vitamin D 25 Total 55 ng/mL (30-100)
[2025-01-15 22:55] LABS: T3, Total 111 ng/dL (97-169)
== END 2025-01-14 04:20 | disposition home or self-care (01) ==
PROVIDERS: PCP Nurse Practitioner Adult Health; Visit Provider Internal Medicine Endocrinology, Diabetes & Metabolism
DX: E05.00 Thyrotoxicosis with diffuse goiter without thyrotoxic crisis or storm (principal); E55.9 Vitamin D deficiency, unspecified
CPT/HCPCS: 36415; 82306; 84439; 84443; 84480

== ENCOUNTER 2025-04-05 00:44 | Outpatient (CLI) | payer BC, SELFPAY ==
[2025-04-05 18:59] LABS: TSH (W/Ref FT4) 1.46 uIU/mL (0.55-4.78)
== END 2025-04-05 00:45 | disposition home or self-care (01) ==
PROVIDERS: PCP Nurse Practitioner Adult Health; Visit Provider Internal Medicine Endocrinology, Diabetes & Metabolism
DX: E05.00 Thyrotoxicosis with diffuse goiter without thyrotoxic crisis or storm (principal); E55.9 Vitamin D deficiency, unspecified; E28.319 Asymptomatic premature menopause
CPT/HCPCS: 36415; 83520; 84443; 84445